=== PATIENT | male | born 1990 | race Caucasian/White ===

== ENCOUNTER 2024-08-31 22:59 | Emergency (ER) | payer MEDICARE, MEDICAID, SELFPAY ==
[2024-08-31 23:03] VITALS: BP 122/69; PULSE 88; RESP 18; TEMP 36.3; O2SAT 98
[2024-08-31 23:27] VITALS: BMI 32.3
--- NOTE | 2024-09-01 00:26 | PD.EDMEDCL ---
ED Medical Clearance RME/HPI General Chief complaint: Medical Clearance Stated complaint: LONG-TERM CLEARANCE Time Seen by Provider: 09/01/24 00:22 Arrival date/time: 08/31/24 22:59 34-year-old male brought in by [facility] for medical clearance. Patient appeared to be heavily intoxicated by skilled nursing medical staff was sent here for clearance. Patient denies any shortness of breath chest or abd pain nausea vomiting weakness dizziness vision or hearing changes or any issues with gait Limitations: no limitations Review of Systems Constitutional Constitutional: Denies fatigue and Denies frequent falls Eyes Eyes: Denies blurry vision and Denies change in vision ENT Ears, Nose, Mouth, and Throat: Denies dizziness, Denies throat swelling and Denies tongue swelling Cardiovascular Cardiovascular: Denies chest pain, Denies dyspnea and Denies syncope Respiratory Respiratory: Denies cough and Denies dyspnea Gastrointestinal Gastrointestinal: Denies nausea and Denies vomiting Genitourinary Genitourinary: Denies difficulty urinating and Denies flank pain Musculoskeletal Musculoskeletal: Denies arthralgias and Denies limited range of motion Integumentary/Breasts Skin/Breast: Denies unusual bruising and Denies wounds Neurologic Neurologic: Denies confusion, Denies convulsions, Denies dizziness, Denies frequent falls and Denies syncope Psychiatric Psychiatric: Denies anxiety, Denies confusion and Denies depression Endocrine Endocrine: Denies fatigue Hematologic/Lymphatic Hematologic/Lymphatic: Denies easy bleeding and Denies easy bruising Allergic/Immunologic Allergic/Immunologic: Denies throat swelling and Denies tongue swelling Past Medical History Social History SMOKING STATUS: Never smoker ED Exam General Limitations: Present no limitations General appearance: Present alert, in no apparent distress and appears intoxicated (mildly but is able to answer questions appropriately ); Absent in distress Head Head exam: Present atraumatic Eye Eye exam: Present normal appearance, PERRL and EOMI ENT ENT exam: Present normal exam, normal oropharynx and mucous membranes moist Neck Neck exam: Present normal inspection, full ROM and trachea midline Chest Chest inspection: Present normal inspection and symmetric chest wall rise Respiratory Respiratory exam: Present normal lung sounds bilaterally Cardiovascular Cardiovascular exam: Present regular rate, normal rhythm and normal heart sounds Abdominal Exam Abdominal exam: Present soft and normal bowel sounds Extremities Exam Extremities exam: Present normal inspection and full ROM Back Exam Back exam: Present normal inspection and full ROM Neurological Exam Neurological exam: Present alert, oriented X3 and CN II-XII intact Psychiatric Psychiatric exam: Present normal affect and normal mood Skin Skin exam: Present warm, dry, intact and normal color Course Course Course Narrative: 34-year-old male brought in for medical clearance of drinking this. Patient is stable does not appear to be a harm to himself or others and will be discharged with the [facility] to skilled nursing Quality Measures none Vital Signs Vital signs: Vital Signs Temperature 97.4 F 08/31/24 23:03 Pulse Rate 88 08/31/24 23:03 Respiratory Rate 18 08/31/24 23:03 Blood Pressure 122/69 08/31/24 23:03 Pulse Oximetry (%) 98 08/31/24 23:03 Oxygen Delivery Method Room Air 08/31/24 23:03 Medical Clearance Patient data External records reviewed:: None Clinical information provided by:: patient Social determinants that could affect healthcare access:: none Patient has the following chronic illnesses:: none How is presenting disease/condition affected by chronic disease/condition?: no chronic disease Evaluation data The following diagnostics were reviewed and interpreted by me:: other (specify) (none) Lab and/or radiology exams considered but not ordered:: none Interpretation Summary: n/a Medications / Prescriptions Medications or Prescriptions considered but not ordered:: none Medication administrations:: none Consultations Consultation(s) initiated? (list below): No Diagnosis Medical Clearance Differential Diagnosis: other (alcohol intoxication, alcohol abuse, alcohol use) Most likely diagnosis given after review of the tests above:: alcohol use, medically cleared for skilled nursing Admission Indicated Admission indicated?: not indicated Admission Request Was there a request for admission?: No Disposition Plan Disposition Plan: Discharge Discharge Attestation Discharge Attestation: The patient and all family members were given an opportunity to ask questions and understood the discharge instructions. Discharge instructions specifically effects, indications for sooner follow up or return to the emergency department, and the expected course of current diagnosis. Patient condition: Stable Discharge Plan Plan Patient Disposition: Half-Way/Court/Law Problem List Clinical Impression: Medical clearance for incarceration Patient/Caregiver Discharge Instructions Print Language: Turkish
== END 2024-09-01 00:47 ==
PROVIDERS: Emergency Provider Emergency Medicine
DX: Z02.89 Encounter for other administrative examinations (principal); Z65.3 Problems related to other legal circumstances
CPT/HCPCS: 99281